=== PATIENT | female | born 1995 | race Caucasian/White ===

== ENCOUNTER 2019-03-19 14:22 | Emergency (ER) | payer OTHER ==
--- OUTSIDE RECORDS SUMMARY | 2019-03-19 14:40 | XMS REPORT | Continuity of Care Document ---
:1995 External Reference #:[id number] Author Name Minal Canseco Care Team Providers Name Role Phone José Miguel Laurent MD Care Team Information Domestic Helper Unavailable Payers Date Identification Numbers Payment Provider Subscriber Effective: 2005 Policy Number: [id number] [facility] Chaz Luna Group Name: [facility]. [address] PayID: [id number] [place] [address] Expires: 2005 Policy Number: [id number] [facility] Chaz Luna Group Name: [facility]. 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 Hand Dominance Right-handed ETOH Use Occasionally consumes alcohol Tobacco Use Reviewed: Patient has never smoked 10/12/14 Recreational Drug Use Denies Drug Use Smoking Status Reviewed: Patient has never smoked 10/17/18 Tattoo/Piercing Pierced ears Allergies, Adverse Reactions, Alerts Description No Known Drug Allergies Medications Active Medications SIG Qnty Indications Ordering Date Provider Zantac 150 Maximum 1 by mouth twice 60tabs K21.9 José Miguel 03/17/2019 Strength a day MD Anastasiia 150mg Tablets Mometasone Furoate apply to affected 45units L30.9 José Miguel 09/18/2018 area twice a day MD Anastasiia 0.1% Cream for 5- 7 days as needed for dermatitis Benzoyl apply to dry 69.9units L70.9 José Miguel 09/02/2018 Peroxide-Erythromyci washed skin twice MD Anastasiia n a day as 5-3% Gel directed. also use sunscreen with product Escitalopram Oxalate take 1 tablet by 30tabs F41.9 José Miguel 09/02/2018 mouth once daily MD Anastasiia 10mg Tablets Loryna take 1 tablet by Unknown 3-0.02mg mouth once daily Tablets History Medications Benzonatate 1 by mouth three 30caps R05 José Miguel 10/17/2018 - 200mg times a day MD Anastasiia 02/16/2019 Capsules Erythromycin L70.9 [place] 09/02/2018 - 2% Gel MD Anastasiia 09/02/2018 Levocetirizine 1 every day as 30tabs J30.9 [place] 01/11/2017 - Dihydrochloride needed MD Anastasiia 02/20/2017 5mg Tablets Fluticasone 2 puffs each 16units J30.9 [place] 01/11/2017 - Propionate nare every in MD Anastasiia 02/20/2017 50mcg/Act the morning Suspension Azithromycin 2 tablets day 6tabs 466.0 José Miguel 10/12/2014 - 250mg one then one MD Anastasiia 07/04/2015 Tablets tablet day2 thru day 5 Benzonatate one three times 30caps 786.2 José Miguel 10/12/2014 - 200mg a day as needed MD Anastasiia 07/04/2015 Capsules cough Minocycline HCL 1 by mouth twice 60caps 704.9 José Miguel 01/26/2014 - 100mg a day MD Anastasiia 06/17/2014 Capsules Hydrocortisone use 3-4 times 1units 691.8 José Miguel 01/26/2014 - 2.5% daily for MD Anastasiia 01/26/2014 Cream hemorrhoid pain Hydrocortisone apply to 30units 691.8 José Miguel 01/26/2014 - Valerate affected area MD Anastasiia 10/12/2014 0.2% Cream twice a day as needed Zithromax take two tabs 6tabs 461.8 José Miguel 03/12/2013 - 250mg Tablets today, then one MD Anastasiia 06/16/2013 a day for four days. Nuvaring 626.2 José Miguel 05/13/2012 - MD Anastasiia 01/26/2014 0.12-0.015mg/24HR Ring Norgestim-Eth Estrad Unknown - Triphasic 06/27/2018 0.18/0.215/0.25 mg-35 mcg Tablets Immunizations CPT Code Status Date Vaccine Lot # [id number] Given 02/20/2017 Tdap - Tetanus/Diptheria/Acellular Pertussis 38362 Given 06/17/2014 Influenza Virus 3Yrs & Over 22874 Given 06/16/2013 Influenza Virus 3Yrs & Over 80676 Given 05/20/2012 Influenza Virus 3Yrs & Over 27421 Given 05/14/2011 Influenza Virus 3Yrs & Over 74946 Given 07/28/2009 Administration Swine Flu Shot 29712 Given 07/21/2008 Influenza Virus 3Yrs & Over 88032 Given 05/14/2008 Meningitis MCV4 MenACWY Meningococcal Conjugate Vaccine 49876 Given 01/19/2008 Gardasil (HPV) 65138 Given 12/25/2007 Hepatitis A Vaccine Pediatric/Adolescent Dosage 2 Dose Schedule 43284 Given 07/15/2007 Hepatitis A Vaccine Pediatric/Adolescent Dosage 2 Dose Schedule 96615 Given 06/18/2007 Gardasil (HPV) 76126 Given 05/13/2007 Gardasil (HPV) 75448 Given 10/21/2005 Tdap - Tetanus/Diptheria/Acellular Pertussis 86264 Given 06/03/2003 DTaP Vaccine Younger Than 7 04571 Given 01/31/2003 Tetanus And Diptheria (Td) For Adult Use Preservative Free 15344 Given 05/07/2001 Varicella (Chicken Pox) Immunization 99664 Given 03/08/1998 DTaP Vaccine Younger Than 7 11631 Given 03/08/1998 IPV/Poliomyelitis Immunization 05618 Given 04/13/1997 Measles Mumps And Rubella MMR 11033 Given 10/14/1996 Varicella (Chicken Pox) Immunization 41273 Given 11/05/1995 DTaP Vaccine Younger Than 7 54836 Given 10/15/1994 Measles Mumps And Rubella MMR 49577 Given 10/15/1994 Hib PRP-T Conjugate 4 Dose Schedule 78037 Given 05/14/1994 Hep B Pediatric/Adolescent 73033 Given 05/14/1994 Poliovirus Vaccine OPV Live Oral Use 17491 Given 05/14/1994 Hib PRP-T Conjugate 4 Dose Schedule 73642 Given 05/09/1994 DTaP Vaccine Younger Than 7 54791 Given 1993 Hep B Pediatric/Adolescent 68943 Given 1993 Poliovirus Vaccine OPV Live Oral Use 06001 Given 1993 DTaP Vaccine Younger Than 7 71921 Given 1993 Hib PRP-T Conjugate 4 Dose Schedule 90829 Given 1993 Hep B Pediatric/Adolescent 76360 Given 1993 Poliovirus Vaccine OPV Live Oral Use 03129 Given 1993 DTaP Vaccine Younger Than 7 70713 Given 1993 Hib PRP-T Conjugate 4 Dose Schedule Vital Signs Date Vital Result Comment 03/17/2019 10:57am Weight 203.56 lb BP Systolic Sitting 110 mmHg BP Diastolic Sitting 50 mmHg 02/16/2019 8:01am Weight 206.31 lb BP Systolic Sitting 100 mmHg BP Diastolic Sitting 50 mmHg 10/17/2018 10:00am Weight 198.00 lb 09/18/2018 8:49am Weight 198.00 lb BP Systolic 120 mmHg BP Diastolic 70 mmHg Body Temperature 98.8 F 09/02/2018 4:19pm Weight 204.00 lb BP Systolic 124 mmHg BP Diastolic 70 mmHg 06/27/2018 10:31am Height 67 inches Weight 202.50 lb Heart Rate 88 /min BP Systolic 122 mmHg BP Diastolic 80 mmHg Body Temperature 98.7 F BMI (Body Mass Index) 31.7 kg/m2 07/15/2017 10:56am Height 67.50 inches Weight 182.00 lb Heart Rate 68 /min BP Systolic 112 mmHg BP Diastolic 70 mmHg Respiratory Rate 16 /min BMI (Body Mass Index) 28.1 kg/m2 02/20/2017 3:07pm Height 67.50 inches Weight 164.00 lb Heart Rate 76 /min BP Systolic 118 mmHg BP Diastolic 82 mmHg Respiratory Rate 16 /min Body Temperature 99.2 F BMI (Body Mass Index) 25.3 kg/m2 01/11/2017 10:02am Height 67 inches Weight 161.50 lb BP Systolic 96 mmHg BP Diastolic 66 mmHg Body Temperature 98.6 F BMI (Body Mass Index) 25.3 kg/m2 06/14/2015 1:48pm Weight 150.50 lb BP Systolic 108 mmHg BP Diastolic 72 mmHg 10/12/2014 1:25pm Weight 152.00 lb Body Temperature 98.8 F 06/30/2014 3:20pm Weight 158.00 lb BP Systolic 118 mmHg BP Diastolic 62 mmHg 06/17/2014 9:49am Height 67 inches Weight 154.00 lb Heart Rate 78 /min BP Systolic 120 mmHg BP Diastolic 80 mmHg Respiratory Rate 12 /min Body Temperature 98.7 F BMI (Body Mass Index) 24.1 kg/m2 01/26/2014 1:27pm Weight 161.00 lb BP Systolic 124 mmHg BP Diastolic 76 mmHg 06/16/2013 1:50pm Height 66.6 inches Weight 154.00 lb Heart Rate 70 /min BP Systolic 110 mmHg BP Diastolic 50 mmHg Respiratory Rate 14 /min Body Temperature 98.8 F BMI (Body Mass Index) 24.4 kg/m2 03/12/2013 10:04am Weight 152.00 lb BP Systolic 90 mmHg BP Diastolic 70 mmHg Body Temperature 98.6 F Weight Percentile 82nd 05/20/2012 1:44pm Height 65.50 inches Weight 129.00 lb Heart Rate 68 /min BP Systolic 106 mmHg BP Diastolic 78 mmHg Respiratory Rate 14 /min Body Temperature 97.8 F BMI (Body Mass Index) 21.1 kg/m2 Height Percentile 68 % Weight Percentile 55th 05/13/2012 11:01am Height 65.25 inches Weight 129.50 lb BP Systolic 114 mmHg BP Diastolic 76 mmHg BMI (Body Mass Index) 21.4 kg/m2 Height Percentile 64 % Weight Percentile 56th Results Test Date Facility Test Result H/L Range Note Laboratory test 07/26/2017 N2N/CCD Import Treponema Negative 1 finding Antibody [place] Hepatitis 07/26/2017 N2N/CCD Import HBsAg Screen Negative Evaluation [Ref Lab] HCV Signal/Cutoff ratio 0.1 s/corat 0-0.9 2 Hepatitis A Antibody IgM Negative Hepatitis B Core IgM Negative Laboratory test 07/26/2017 N2N/CCD Import HIV Screen 4TH Non Reactive 3 finding Gen Reflex Laboratory test 12/24/2014 N2N/CCD Import [place] Screen Negative finding (Heterophile) Laboratory test 12/24/2014 N2N/CCD Import Throat Culture See Note 4 finding Complete Basic Metabolic 06/20/2013 N2N/CCD Import Anion Gap 12 mEq/L 8-16 Panel BUN 7 mg/dL 5-23 BUN/Creat 10.0 ratio Calcium 8.6 mg/dL 8.5-10.1 Carbon Dioxide 23 mEq/L 18-29 Chloride 110 mmol/L High 98-107 Creatinine 0.7 mg/dL 0.5-1.4 Glom Filtration Rate, Estimate >60 mL/min Glucose 86 mg/dL 76-115 If >60 mL/min 5 Potassium 4.2 mmol/L 3.5-5.1 Sodium 141 mmol/L 136-145 CBC W/Automated Diff 06/20/2013 N2N/CCD Import Bas% 0.3 % 0-1.1 Baso # 0.02 K/uL 0-0.1 Eo% 1.5 % 0-6.6 Eos # 0.09 K/uL 0-0.5 Hematocrit 39.4 % 36-46.1 Hemoglobin 13.3 gm/dL 11.6-15.8 Lymph # 2.58 K/uL 0.8-3.4 Lymph % 44.2 % 17-46.1 Mean Cell Volume 85.8 fl 80.9-99 Mean Corpuscular HGB 29.0 pg 25.9-32.7 Mean Corpuscular HGB Conc 33.8 g/dL 30.8-34.3 Mean Platelet Volume 9.3 fL 8.9-12.4 [place] # 0.41 K/uL 0-0.6 [place] % 7.0 % 4.3-13.2 Neut# 2.74 K/uL 1-7 Neut% 47.0 % 28-68 Platelet Count 293 K/uL 155-360 Red Blood Count 4.59 M/uL 3.9-5.4 Red Cell Distri Width %CV 13.3 % 11.7-14.4 Red Cell Distri Width SD 40.6 fl 3-47 White Blood Count 5.8 K/uL 3.1-10.7 LDL Cholesterol Profile 06/20/2013 N2N/CCD Import Cholesterol 196 mg/dL 120-200 HDL Cholesterol 45 mg/dL 29-83 LDL-Cholesterol 113 mg/dL 62-185 Triglycerides 188 mg/dL 16-231 Liver Function Tests 06/20/2013 N2N/CCD Import Alb/Glob 0.8 ratio Albumin 3.2 g/dL Low 3.5-5 Alkaline Phosphatase 80 U/L 50-136 Bilirubin,Direct < 0.1 mg/dL Low 0.1-0.4 Bilirubin,Indirect 0.1 mg/dL 0-0.9 Bilirubin,Total 0.2 mg/dL 0.2-1.2 Globulin 3.9 g/dL 1.9-4.3 SGPT/Alt 31 U/L 30-65 Sgot/Ast 21 U/L 16-40 Total Protein 7.1 g/dL 6.3-8 1 Z11.3 2 INFCE Result Units: s/co ratio Negative: < 0.8 Indeterminate: 0.8 - 0.9 Positive: > 0.9 The CDC recommends that a positive HCV antibody result be followed up with a HCV Nucleic Acid Amplification test (961106). Performed at: [facility] [id number] Information Writer: Fay Cantu MD, Phone: [phone] Performed at: [facility] [id number] Information Writer: Cricket Murillo MD, Phone: [phone] Performed at: [facility] [id number] Information Writer: Fay Cantu MD, Phone: [phone] NORMAL THROAT YONI 5 Note: Persistent reduction for 3 months or more in an eGFR <60 mL/min/1.73 m2 defines CKD. Patients with eGFR values >/=60 mL/min/1.73 m2 may also have CKD if evidence of persistent proteinuria is present. The original MDRD equation for estimated GFR is not valid for patients less than 18 years of age. Additional information may be found at www.kdoqi.org. Procedures Date Code Description Status 04/12/2017 53098 Destruction Of Benign Lesions Any Method 1-14 lesions Completed 07/04/2015 03522 Screening Vision Test Completed 07/04/2015 78339 Pure Tone Hearing Test, Air Completed 10/12/2014 25694 Inhalation [place] For Acute Airway Obstruction Completed W/Nebulizer/Inhaler 06/17/2014 94992 Screening Vision Test Completed 06/17/2014 94010 Pure Tone Hearing Test, Air Completed 06/16/2013 37131 Screening Vision Test Completed 06/16/2013 43206 Pure Tone-Air Condition Only Completed 05/20/2012 56519 Pure Tone-Air Condition Only Completed 05/20/2012 61096 Screening Vision Test Completed 05/14/2011 19298 Screening Vision Test Completed 05/14/2011 80499 Pure Tone-Air Condition Only Completed 05/11/2010 01897 Screening Vision Test Completed 05/11/2010 29351 Pure Tone-Air Condition Only Completed 06/09/2009 29223 Screening Vision Test Completed 06/09/2009 42512 Pure Tone-Air Condition Only Completed 07/21/2008 36332 Screening Vision Test Completed 07/21/2008 97691 Tympanometry Completed Encounters Type Date Location Provider Dx Diagnosis Office Visit 10/17/2018 [facility] BEN Hernandez J06.9 Acute upper 10:00a respiratory infection, unspecified R05 Cough F41.9 Anxiety disorder, unspecified L70.8 Other acne Plan of Treatment Future Appointment(s):05/19/2019 8:00 am - BEN Hernandez at [facility] Primary [facility] 10:30 am - BEN Hernandez at [facility]03/17/2019 - Janiya Blackwell PAF41.9 Anxiety disorder, [id number] Gastro-esophageal reflux disease without esophagitisNew Medication:Zantac 150 Maximum Strength 150 mg - 1 by mouth twice a day
[2019-03-19 15:31] VITALS: BP 131/88
[2019-03-19] MEDS ORDERED: Ondansetron ODT TAB* 4 MG PO ONE (16:03)
--- NOTE | 2019-03-19 16:05 | UC ---
Abdominal Pain Female HPI - HPI Summary HPI Summary: Patient has had increased abdominal pain, nausea and vomiting over the last week. She was seen by her primary on 03/17/19 and given ranitidine for her GERD type pain. however, The symptoms have worsened, She is constantly gassy, increased abdominal tenderness, has had small BM yesterday. mild peritoneal tenderness with leg movement, but no rebound tenderness. Discussed options with patient and decision to follow up in ER. Patient was in agreement.zofran given. - History of Current Complaint Chief Complaint: UCAbdominalPain Stated Complaint: NAUSEA Time Seen by Provider: 03/19/19 15:16 Hx Obtained From: Patient Hx Last Menstrual Period: week of 02/23/19 ?: No Onset/Duration: Sudden Onset, Lasting Days Timing: Constant Severity Initially: Moderate Severity Currently: Severe Pain Intensity: 8 Location: Discrete At: RUQ, Discrete At: LUQ Radiates: No Character: Aching, Colicy, Cramping Aggravating Factor(s): Food, Movement Alleviating Factor(s): Nothing Associated Signs and Symptoms: Positive: Constipation, Decreased Appetite, Nausea, Vomiting Allergies/Adverse Reactions: Allergies Allergy/AdvReac Type Severity Reaction Status Date / Time nickel Allergy Rash And Verified 03/19/19 15:32 Itching pet dander Allergy Eyes Uncoded 03/19/19 15:32 Itchy/Swollen/Red/Watery seasonal Allergy Eyes Uncoded 03/19/19 15:32 Itchy/Swollen/Red/Watery Home Medications: Home Medications Escitalopram * [Lexapro 10 mg (NF)] 10 mg PO BEDTIME 03/19/19 [History Confirmed 03/19/19] O C 1 tab PO QPM 03/19/19 [History Confirmed 03/19/19] raNITIdine HCl [Ranitidine HCl] 150 mg PO BID 03/19/19 [History Confirmed ] PMH/Surg Hx/FS Hx/Imm Hx Previously Healthy: Yes Psychological History: Anxiety - Surgical History Surgical History: Yes Surgery Procedure, Year, and Place: neck cyst - Social History Alcohol Use: Rare Substance Use Type: None Smoking Status (MU): Never Smoked Tobacco Review of Systems All Other Systems Reviewed And Are Negative: Yes Gastrointestinal: Positive: Abdominal Pain, Vomiting, Nausea Physical Exam Triage Information Reviewed: Yes Appearance: Ill-Appearing, Pain Distress, Obese Vital Signs: Initial Vital Signs Temp 98.6 F 03/19/19 15:12 Pulse 90 03/19/19 15:12 Resp 18 03/19/19 15:12 BP 131/88 03/19/19 15:12 Pulse Ox 98 03/19/19 15:12 Vital Signs Reviewed: Yes Eye Exam: Normal ENT Exam: Normal Dental Exam: Normal Neck exam: Normal Respiratory Exam: Normal Respiratory: Positive: Chest non-tender, Lungs clear, Normal breath sounds Cardiovascular Exam: Normal Cardiovascular: Positive: RRR, No Murmur, Pulses Normal Abdomen Description: Positive: CVA Tenderness (R) - neg, CVA Tenderness (L) - neg, Distended, Other: - tenderness in upper right and left quads, no palpable masses, abdomen is distended. burping throughout exam. Bowel Sounds: Positive: Hypoactive Musculoskeletal Exam: Normal Neurological Exam: Normal Psychological Exam: Normal Skin Exam: Normal Abd Pain Female Course/Dx - Course Course Of Treatment: hx obtained, exam performed ,meds reviewed, discussed being seen in the ER for further work up of abdominal pain - Differential Dx/Diagnosis Differential Diagnosis: Appendicitis, Bowel Obstruction, Constipation, Gall Bladder Disease, Irritable Bowel Syndrome Provider Diagnosis: Burping, Nausea & vomiting, Right upper quadrant abdominal pain Discharge - Sign-Out/Discharge Documenting (check all that apply): Patient Departure All imaging exams completed and their final reports reviewed: No Studies - Discharge Plan Condition: Stable Disposition: HOME Patient Education Materials: Abdominal Pain (ED) Referrals: José Miguel Laurent MD [Primary Care Provider] - Additional Instructions: 1. I recommend you follow up in the ER for further evaluation of your abdominal pain - Billing Disposition and Condition Condition: STABLE Disposition: Home
== END 2019-03-19 16:13 | disposition home or self-care (01) ==
LOC: UCCORT 14:22
DX: R14.2 Eructation (principal); R11.2 Nausea with vomiting, unspecified; R10.11 Right upper quadrant pain; F41.9 Anxiety disorder, unspecified
CPT/HCPCS: 81003; 99212; A9270-GY; G0463

== ENCOUNTER 2019-12-09 18:24 | Emergency (ER) | payer OTHER ==
[2019-12-09 18:35] VITALS: BP 116/67
[2019-12-09] MEDS ORDERED: Ondansetron ODT TAB* 4 MG PO ONE ×2 (18:44→20:37)
--- NOTE | 2019-12-09 19:26 | UC ---
Headache HPI - HPI Summary HPI Summary: 24 yo female with the onset of a left retrobulbar MALAVE yesterday about 7 PM + photophobia + n/v x 5 MALAVE constant with a max pain of 7/10. Currently about a three She has been taking tylenol Had a similar but less severe MALAVE 2-3 mos ago Did not seek medical care for it No Hx migraines No hx trauma describes MALAVE as throbbing - History Of Current Complaint Chief Complaint: UCHeadache Stated Complaint: HEADACHE VOMITING Time Seen by Provider: 12/09/19 18:47 Hx Obtained From: Patient Hx Last Menstrual Period: 11/25/19 Onset/Duration: Gradual Onset, Lasting Hours Onset Of Symptoms: Gradual Initially Headache Was: "Worst Headache Ever", Moderate Currently Pain Is: Mild Pain Intensity: 3 Pain Scale Used: 0-10 Numeric Timing: Constant Character: Throbbing Location of Headache: Other: - left retrobulbar Aggravating Factor(s): Nothing Associated Signs And Symptoms: Positive: Nausea, Vomiting - Allergies/Home Medications Allergies/Adverse Reactions: Allergies Allergy/AdvReac Type Severity Reaction Status Date / Time nickel Allergy Rash And Verified 12/09/19 18:27 Itching pet dander Allergy Eyes Uncoded 12/09/19 18:27 Itchy/Swollen/Red/Watery seasonal Allergy Eyes Uncoded 12/09/19 18:27 Itchy/Swollen/Red/Watery Home Medications: Home Medications O C 1 tab PO QPM 03/19/19 [History Confirmed 12/09/19] Dicyclomine HCl 20 mg PO Q6H 12/09/19 [History Confirmed 12/09/19] Omeprazole 20 mg PO DAILY 12/09/19 [History Confirmed 12/09/19] PMH/Surg Hx/FS Hx/Imm Hx Previously Healthy: Yes GI/ History: Other Other GI/ History: gastritis - Surgical History Surgical History: Yes Surgery Procedure, Year, and Place: neck cyst. upper endoscopy - Family History Known Family History: Positive: Hypertension, Other - lupus - Social History Alcohol Use: Rare Substance Use Type: None Smoking Status (MU): Never Smoked Tobacco Review of Systems All Other Systems Reviewed And Are Negative: Yes Constitutional: Positive: Negative Skin: Positive: Negative Eyes: Positive: Photophobia ENT: Positive: Negative Respiratory: Positive: Negative Cardiovascular: Positive: Negative Gastrointestinal: Positive: Vomiting, Nausea Genitourinary: Positive: Negative Motor: Positive: Negative Neurovascular: Positive: Negative Musculoskeletal: Positive: Negative Neurological/Mental Status: Positive: Headache Psychological: Positive: Negative Physical Exam Triage Information Reviewed: Yes Appearance: Well-Appearing, No Pain Distress, Well-Nourished Vital Signs: Initial Vital Signs Temp 98.3 F 12/09/19 18:29 Pulse 77 12/09/19 18:29 Resp 16 12/09/19 18:29 BP 116/67 12/09/19 18:29 Pulse Ox 98 12/09/19 18:29 Vital Signs Reviewed: Yes Eyes: Positive: Conjunctiva Clear, Other: - eomi/perrl, fundoscopic exam normal ENT: Positive: Hearing grossly normal, Pharynx normal, TMs normal, Uvula midline. Negative: Nasal congestion, Nasal drainage, Tonsillar swelling, Tonsillar exudate, Trismus, Muffled voice, Hoarse voice Dental Exam: Normal Neck: Positive: Supple, Nontender, No Lymphadenopathy, Other: - no bruits Respiratory: Positive: Lungs clear, Normal breath sounds, No respiratory distress, No accessory muscle use Cardiovascular: Positive: RRR, No Murmur Bowel Sounds: Positive: Present Musculoskeletal: Positive: ROM Intact, No Edema Neurological: Positive: Alert, Other: - GCS 15/15, CN2-12 intact, strenght 5/5, no pronator drip, sensation intact, dtrs symmetrical, normal gait Psychological Exam: Normal Skin Exam: Normal Diagnostics - Radiology No standard instances Radiology Interpretation Completed By: Radiologist Summary of Radiographic Findings: CT brain negative Re-Evaluation - Re-Evaluation First Eval Re-Evaluation Time: 20:38 Change: Improved - MALAVE 2/10, tolerating liquids Headache Course/Dx - Differential Dx/Diagnosis Provider Diagnosis: Headache Discharge ED - Sign-Out/Discharge Documenting (check all that apply): Patient Departure All imaging exams completed and their final reports reviewed: Yes - Discharge Plan Condition: Improved Disposition: HOME Patient Education Materials: Acute Headache (ED) Referrals: José Miguel Laurent MD [Primary Care Provider] - As Soon As Possible Additional Instructions: Your CT scan was normal zofran for nausea tylenol or advil if needed TO ER FOR NEW OR WORSENING SYMPTOMS - Billing Disposition and Condition Condition: IMPROVED Disposition: Home
[2019-12-09] MEDS ORDERED: NS 0.9% 1000 ML** 1,000 ML BOLUS ONE (19:44)
[2019-12-09] MEDS ORDERED: Ketorolac INJ* 30 MG/ML 1 ML VIAL IM ONE (20:14)
== END 2019-12-09 20:53 | disposition home or self-care (01) ==
LOC: UCCORT 18:24
DX: G44.009 Cluster headache syndrome, unspecified, not intractable (principal); H53.142 Visual discomfort, left eye; R11.2 Nausea with vomiting, unspecified
CPT/HCPCS: 70450; 96372; 99213; A9270-GY; G0463; J1885